=== PATIENT | male | born 1990 | race Caucasian/White ===

== ENCOUNTER 2017-09-25 14:35 | Emergency (ER) | payer SELFPAY ==
[~2017-09-25] VITALS: Ht 185.4 cm; Wt 157.6 kg
[~2017-09-25 14:35] MED LIST: IBUP-1842 PO
[2017-09-25 14:43] VITALS: BP 142/91
--- NOTE | 2017-09-25 14:46 | NUR ---
PT AA&OX4 WITH EVEN AND STEADY GAIT; PT TO LOBBY AWAITING OPEN BED.
[2017-09-25] MEDS ORDERED: KETOROLAC 60 MG/2 ML VIAL IM ONE (15:20)
--- NOTE | 2017-09-25 16:06 | NUR ---
Patient discharged with v/s stable. Written and verbal after care instructions given and explained. Patient alert, oriented and verbalized understanding of instructions. Ambulatory with steady gait. All questions addressed prior to discharge. ID band removed. Patient advised to follow up with PMD. Rx of NAPROSYN, COLCHICINE, ALLOPURINOL given. Patient educated on indication of medication including possible reaction and side effects. Opportunity to ask questions provided and answered.
[2017-09-25 16:07] VITALS: BP 142/91
== END 2017-09-25 16:07 | disposition home or self-care (01) ==
LOC: MED 14:35
DX: M10.9 Gout, unspecified (principal); R03.0 Elevated blood-pressure reading, without diagnosis of hypertension; Z79.899 Other long term (current) drug therapy
CPT/HCPCS: 96372; 99283; J1885

== ENCOUNTER 2018-09-06 12:47 | Emergency (ER) | payer SELFPAY ==
[~2018-09-06] VITALS: Ht 177.8 cm; Wt 152.5 kg
[2018-09-06 12:55] VITALS: BP 126/68
--- NOTE | 2018-09-06 13:00 | NUR ---
pt ambulated to er bed 09
--- NOTE | 2018-09-06 13:14 | NUR ---
27 YO M BIB MOTHER W/ C/O RIGHT EAR PAIN THAT RADIATES TO HIS JAW X 3 DAYS. STATES HAVIG WATER IN HIS MOUTH HELPS REDUCE THE PAIN. DENIES TOOTHACHE. REPORTS EAR CANAL IS SWOLLEN. DENIES FEVER, REPORTS INTERMITTENT NAUSEA. HX DENIES RX EXEDRIN
[2018-09-06] MEDS ORDERED: cefTRIAXone 1,000 MG in LIDOCAINE 1% ***ER ONLY *** 2.1 ML IM ONE (13:30)
[2018-09-06] MEDS ORDERED: KETOROLAC 60 MG/2 ML VIAL IM ONE (13:30)
[2018-09-06] MEDS ORDERED: cefTRIAXone 1,000 MG VIAL ONE (13:51)
[2018-09-06] MEDS ORDERED: LIDOCAINE MPF 1% 5mL VIAL ONE (13:51)
[2018-09-06 14:39] VITALS: BP 126/68
--- NOTE | 2018-09-06 14:41 | NUR ---
Patient discharged with v/s stable. Written and verbal after care instructions given and explained. Patient alert, oriented and verbalized understanding of instructions. Ambulatory with steady gait. All questions addressed prior to discharge. ID band removed. Patient advised to follow up with PMD. Rx of PROMETHAZINE, AZITHROMYCIN, AND MOTRIN given. Patient educated on indication of medication including possible reaction and side effects. Opportunity to ask questions provided and answered.
== END 2018-09-06 14:41 | disposition home or self-care (01) ==
LOC: MED 12:47
DX: H92.01 Otalgia, right ear (principal); R11.0 Nausea; Z79.1 Long term (current) use of non-steroidal anti-inflammatories (NSAID)
CPT/HCPCS: 96372; 99283; J0696; J1885; J2001

== ENCOUNTER 2018-11-30 22:11 | Emergency (ER) | payer MEDICAID ==
[~2018-11-30] VITALS: Ht 180.3 cm; Wt 148.3 kg
[2018-11-30 22:14] VITALS: BP 134/90
--- NOTE | 2018-11-30 22:17 | NUR ---
TO LOBBY A/W LIZ, PIOTR, YAJAIRA .
--- NOTE | 2018-11-30 22:54 | NUR ---
PT TAKEN TO BED 11.
--- NOTE | 2018-11-30 23:00 | NUR ---
PT PRESENTS TO ED WITH C/O THROAT PAIN X2 DAYS WITH RIGHT EAR PAIN. DENIES FEVER OR CHILLS. NO DROOLING NOTED. PT C/O PAIN WITH SWALLOWING. DENIES COUGH. AOX4, SPEAKING IN FULL CLEAR SENTENCES. VSS. NO SIGNS OF RESPIRATORY DISTRESS.
--- NOTE | 2018-12-01 00:28 | NUR ---
Dr. Riggs evaluating patient at bedside.
[2018-12-01] MEDS ORDERED: KETOROLAC 60 MG/2 ML VIAL IM ONE (00:30)
[2018-12-01 00:56] VITALS: BP 128/92
--- NOTE | 2018-12-01 00:56 | NUR ---
Patient discharged with v/s stable. Written and verbal after care instructions given and explained. Patient alert, oriented and verbalized understanding of instructions. Ambulatory with steady gait. All questions addressed prior to discharge. ID band removed. Patient advised to follow up with PMD. Rx of Prednisone 20mg and Motrin 800mg given. Patient educated on indication of medication including possible reaction and side effects. Opportunity to ask questions provided and answered.
== END 2018-12-01 00:56 | disposition home or self-care (01) ==
LOC: MED 22:11
DX: J02.9 Acute pharyngitis, unspecified (principal); H92.02 Otalgia, left ear; Z79.1 Long term (current) use of non-steroidal anti-inflammatories (NSAID)
CPT/HCPCS: 96372; 99283; J1885

== ENCOUNTER 2019-04-20 14:18 | Emergency (ER) | payer MEDICAID, OTHER ==
[~2019-04-20] VITALS: Ht 172.7 cm; Wt 152.9 kg
[2019-04-20 14:25] VITALS: BP 139/79
[2019-04-20 15:53] VITALS: BP 125/71
== END 2019-04-20 15:53 | disposition home or self-care (01) ==
LOC: MED 14:18
DX: T16.1XXA Foreign body in right ear, initial encounter (principal); K08.89 Other specified disorders of teeth and supporting structures; Z79.899 Other long term (current) drug therapy; X58.XXXA Exposure to other specified factors, initial encounter; Y93.89 Activity, other specified; Y92.89 Other specified places as the place of occurrence of the external cause; Y99.8 Other external cause status
CPT/HCPCS: 69200; 99284

== ENCOUNTER 2019-06-30 17:11 | Emergency (ER) | payer OTHER ==
[~2019-06-30] VITALS: Ht 185.4 cm; Wt 149.7 kg
[2019-06-30 17:34] VITALS: BP 117/70
--- NOTE | 2019-06-30 17:47 | NUR ---
PT AMBULATED TO CHAIR A.
[2019-06-30] MEDS: KETOROLAC 60 MG/2 ML VIAL IM ONE (18:23)
--- NOTE | 2019-06-30 18:23 | NUR ---
28 Y/O M PRESENTS TO ER C/O LEFT FOOT PAIN. PT HAS GOUT ATTACK X2 DAYS. SWELLING NOTED TO LEFT FOOT. PAIN LEVEL /10. VSS. WAITING FOR PA TO EVALUATE PT. ALLERGIES: NKA MED HX: GOUT
--- NOTE | 2019-06-30 18:30 | NUR ---
PT REPORTS PAIN LEVEL 0/10
[2019-06-30 18:33] VITALS: BP 117/70
--- NOTE | 2019-06-30 18:33 | NUR ---
Patient discharged with v/s stable. Written and verbal after care instructions given and explained. Pt encouraged to avoid purines in diet. Patient alert, oriented and verbalized understanding of instructions. Ambulatory with steady gait. All questions addressed prior to discharge. ID band removed. Patient advised to follow up with PMD IN 2-3 DAYS. Rx of COLCHICINE 0.6MG AND NAPROXEN 500MG was given. Patient educated on indication of medication including possible reaction and side effects. Opportunity to ask questions provided and answered.
== END 2019-06-30 18:33 | disposition home or self-care (01) ==
LOC: MED 17:11
DX: M10.072 Idiopathic gout, left ankle and foot (principal); M25.572 Pain in left ankle and joints of left foot; Z79.899 Other long term (current) drug therapy
CPT/HCPCS: 96372; 99283; J1885

== ENCOUNTER 2019-08-17 12:12 | Emergency (ER) | payer OTHER ==
[~2019-08-17] VITALS: Ht 180.3 cm; Wt 147.4 kg
[2019-08-17 13:14] VITALS: BP 130/71
--- NOTE | 2019-08-17 13:35 | NUR ---
Patient ambulated to bed 9. RN evaluating patient at bedside.
--- NOTE | 2019-08-17 14:00 | NUR ---
28/M PRESENTS SELF TO ED, C/O INTERMITTENT R MID BACK PAIN, SINCE YESTERDAY AFTER LIFTING HEAVY THINGS, EXACERBATED BY MOVEMENT AND EXPOSURE TO COLD AIR. NO ABNORMALITY, BRUISING, ERYTHEMA, OR DEFORMITY NOTED ON BACK, MILDLY TENDER TO TOUCH. DENIES RADIATION OF PAIN. DENIES DYSURIA. PT AWAKE AND ALERT, SKIN NORMAL COLOR WARM AND DRY, RR EVEN AND UNLABORED. DENIES MED HX OR RX. OTC TYLENOL WITH SOME RELIEF.
[2019-08-17 14:39] LABS: APPEARANCE,URINE CLEAR (CLEAR); BILIRUBIN,URINE NEGATIVE (NEGATIVE); BLOOD, URINE TRACE-I (NEGATIVE); COLOR,URINE YELLOW (YELLOW); LEUKOCYTE ESTERASE ,URINE NEGATIVE (NEGATIVE); NITRITE, URINE NEGATIVE (NEGATIVE); UGLUCOSE NEGATIVE (NEGATIVE)
[2019-08-17 14:48] LABS: RBC,URINE 0-5 /HPF (0-5)
[2019-08-17 14:49] LABS: URINE AMORPHOUS URATE 1+ /HPF (None Seen); WBC,URINE 0-5 /HPF (0-5)
--- NOTE | 2019-08-17 15:48 | NUR ---
PT STANDING, STATED R MID BACK PAIN WAS STARTING TO WORSEN WHILE SITTING. REPORTS TOLERABLE 5/10 PAIN AT THIS TIME. VSS. ALL NEEDS MET AT THIS TIME.
[2019-08-17] MEDS ORDERED: KETOROLAC 60 MG/2 ML VIAL IM ONE (16:20)
[2019-08-17 17:05] VITALS: BP 135/72
== END 2019-08-17 17:05 | disposition home or self-care (01) ==
LOC: MED 12:12
DX: M54.5 Low back pain (principal); F17.200 Nicotine dependence, unspecified, uncomplicated; Z79.899 Other long term (current) drug therapy
CPT/HCPCS: 81001; 96372; 99283; J1885

== ENCOUNTER 2024-05-07 14:53 | Emergency (ER) | payer OTHER ==
[~2024-05-07] VITALS: Ht 180.3 cm; Wt 161.0 kg
[2024-05-07 15:31] VITALS: BP 127/99; PULSE 88; RESP 17; TEMP 97.9; O2SAT 96
[2024-05-07] MEDS: ACETAMINOPHEN EXTRA STRENGTH 500 MG TAB PO ONE (16:44)
[2024-05-07] MEDS: KETOROLAC 30 MG/ML VIAL IM ONE (16:44)
[2024-05-07] MEDS ORDERED: ACET-8905 PO (17:04)
[2024-05-07] MEDS ORDERED: IBUP-2213 PO (17:04)
[2024-05-07 17:31] VITALS: BP 133/74; PULSE 87; RESP 17; TEMP 98; O2SAT 99
== END 2024-05-07 17:31 | disposition home or self-care (01) ==
LOC: MED 14:53
DX: S92.312A Displaced fracture of first metatarsal bone, left foot, initial encounter for closed fracture (principal); S92.325A Nondisplaced fracture of second metatarsal bone, left foot, initial encounter for closed fracture; S62.521A Displaced fracture of distal phalanx of right thumb, initial encounter for closed fracture; Z79.899 Other long term (current) drug therapy; X50.1XXA Overexertion from prolonged static or awkward postures, initial encounter; Y93.89 Activity, other specified; Y92.89 Other specified places as the place of occurrence of the external cause; Y99.8 Other external cause status
CPT/HCPCS: 29125; 29515; 73140; 73610; 73630; 96372; 99284; J1885; Q0092